=== PATIENT | male | born 1985 | race Caucasian/White ===

== ENCOUNTER 2019-10-28 16:48 | Emergency (ER) | payer OTHER ==
[2019-10-28] MEDS ORDERED: KETOROLAC TROMETHAMINE 60 MG/2 ML SDV IM ONE (18:23)
--- NOTE | 2019-10-28 18:30 | ER Document Report ---
ED General - General Chief Complaint: Pain All Over Stated Complaint: BODY PAIN,CHILLS,HEADACHE Time Seen by Provider: 10/28/19 17:57 Notes: CHIEF COMPLAINT: Body ache and chills today HPI: 34-year-old male presenting to the emergency department complaining of body ache and chills today. No sore throat no cough no chest pain or shortness of breath no abdominal pain no vomiting or diarrhea. Does complain of mild frontal headache denies posterior neck pain. Took no medications for his symptoms. He is concerned about COVID-19 ROS: See HPI - all other systems were reviewed and are otherwise negative Constitutional: no fever Eyes: no drainage, no blurred vision ENT: no runny nose, no sore throat Cardiovascular: no chest pain Resp: no SOB, no cough GI: no vomiting, no diarrhea, no abdominal pain : no dysuria Integumentary: no rash Allergy: no hives Musculoskeletal: Positive myalgia Neurological: no numbness/tingling, no weakness, positive headache MEDICATIONS: I agree with the patient medications as charted by the RN. ALLERGIES: I agree with the allergies as charted by the RN. PAST MEDICAL HISTORY/PAST SURGICAL HISTORY: Reviewed and agree as charted by RN. SOCIAL HISTORY: Reviewed and agree as charted by RN. FAMILY HISTORY: No significant familial comorbid conditions directly related to patient complaint EXAM: Reviewed vital signs as charted by RN. CONSTITUTIONAL: Alert and oriented and responds appropriately to questions. Well-appearing; well-nourished HEAD: Normocephalic; atraumatic EYES: PERRL; Conjunctivae clear, sclerae non-icteric ENT: normal nose; no rhinorrhea; moist mucous membranes; pharynx without lesions noted, no uvula edema or deviation, no tonsillar hypertrophy, phonation normal NECK: Supple without meningismus; non-tender; no cervical lymphadenopathy, no masses CARD: RRR; no murmurs, no clicks, no rubs, no gallops; symmetric distal pulses RESP: Normal chest excursion without splinting or tachypnea; breath sounds clear and equal bilaterally; no wheezes, no rhonchi, no rales, pulse oximetry 100% on room air not hypoxic ABD/GI: Normal bowel sounds; non-distended; soft, non-tender, no rebound, no guarding; no palpable organomegaly or masses. BACK: The back appears normal and is non-tender to palpation, there is no CVA tenderness EXT: Normal ROM in all joints; non-tender to palpation; no cyanosis, no effusions, no edema SKIN: Normal color for age and race; warm; dry; good turgor; no acute lesions noted NEURO: Moves all extremities equally; Motor and sensory function intact PSYCH: The patient's mood and manner are appropriate. Grooming and personal hygiene are appropriate. MDM: 34-year-old male with flulike symptoms for approximately 16 hours. Did not have any focal symptoms per se. No sore throat no cough no shortness of breath that would suggest strep or pneumonia. Mild frontal headache but no posterior neck pain or nuchal rigidity suggesting meningitis at this time. We spoke at length about his symptoms. Likely a viral etiology at this time will obtain COVID study will be a person under investigation until test results. 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 and he is aware of this - Related Data Allergies/Adverse Reactions: No Known Allergies Allergy (Unverified 10/28/19 17:48) Home Medications: Prozac Past Medical History - Social History Smoking Status: Never Smoker Family History: Reviewed & Not Pertinent Psychiatric Medical History: Reports: Hx Depression Physical Exam - Vital signs Vitals: Temp Pulse Resp BP Pulse Ox 100.5 F H 112 H 24 H 141/81 H 100 10/28/19 16:54 10/28/19 16:54 10/28/19 16:54 10/28/19 16:54 10/28/19 16:54 Course - Vital Signs Vital signs: Temp Pulse Resp BP Pulse Ox 100.5 F H 112 H 24 H 141/81 H 100 10/28/19 16:54 10/28/19 16:54 10/28/19 16:54 10/28/19 16:54 10/28/19 16:54 Discharge - Discharge Clinical Impression: Fever in adult, Person under investigation for COVID-19 Condition: Stable Disposition: HOME, SELF-CARE Additional Instructions: 1. hydrate well at home with juices and water 2. treat fevers and body aches with Voltaren and Tylenol 3. out of work for the next 5 days 4. return to the ED for worsening condition 5. You are considered a person under investigation for COVID-19 at this time self quarantine at home until you have a test result. Most test results are taking 2 to 5 days, you should hear from someone at the hospital about your result Prescriptions: Diclofenac Sodium [Voltaren 50 Mg Tablet.] 50 mg PO BID #20 tablet. Referrals: CHRISTIAN SOTO MD [ACTIVE STAFF] - Follow up as needed
[2019-10-28] MEDS ORDERED: ACETAMINOPHEN 325 MG TABLET PO ONE (18:55)
[2019-10-28 18:57] VITALS: BP 104/65
== END 2019-10-28 19:06 | disposition home or self-care (01) ==
LOC: ER 16:48
DX: U07.1 COVID-19 (principal); R50.9 Fever, unspecified; M79.10 Myalgia, unspecified site; R51 Headache
CPT/HCPCS: 99283; 96372; 87635; J1885; C9803